=== PATIENT | male | born 1940 | race Caucasian/White ===

== ENCOUNTER 2023-12-21 15:43 | Emergency (ER) | payer MEDICARE ==
[~2023-12-21] VITALS: Ht 177.8 cm; Wt 90.7 kg
[2023-12-21 15:54] VITALS: BP 95/53; PULSE 94; RESP 18; TEMP 98; O2SAT 98
--- NOTE | 2023-12-21 15:58 | NUR ---
[facility] TO ER BED 1
--- NOTE | 2023-12-21 16:21 | NUR ---
83 Y/O MALE PT. PRESENT TO THE ED C/O RIGHT FOOT PAIN. DENIES MECHANICAL INJURY. PLAN OF CARE ONGOING.
[2023-12-21] MEDS: KETOROLAC 30 MG/ML VIAL IVP ONE (16:33)
[2023-12-21] MEDS: NACL 0.9% 1,000 ML IV ONE (16:35)
[2023-12-21] MEDS ORDERED: ACET-8905 PO (17:34)
[2023-12-21] MEDS ORDERED: CIPR500T4 PO (17:34)
[2023-12-21] MEDS ORDERED: IBUP-2213 PO (17:34)
[2023-12-21 17:57] VITALS: BP 131/59; PULSE 72; RESP 18; TEMP 98.4; O2SAT 98
--- NOTE | 2023-12-21 18:00 | NUR ---
Patient discharged with v/s stable. Written and verbal after care instructions given and explained. Patient verbalized understanding. Wheel Chair Assisted with to home. All questions addressed prior to discharge. Advised to follow up with PMD.
== END 2023-12-21 18:00 | disposition home or self-care (01) ==
LOC: MED 15:43
DX: R19.7 Diarrhea, unspecified (principal); M79.671 Pain in right foot; E11.9 Type 2 diabetes mellitus without complications; I10 Essential (primary) hypertension; Z98.890 Other specified postprocedural states; Z88.0 Allergy status to penicillin
CPT/HCPCS: 96361; 96374; 99283; J1885; J7030